=== PATIENT | female | born 1955 | race Caucasian/White ===

== ENCOUNTER → 2017-04-21 | Outpatient (CLI) | payer BC ==
--- NOTE | 2017-04-22 16:22 | Diagnostic Imaging Report ---
EXAMINATION: Bilateral screening mammogram with a Computer Aided Detection (CAD) system. INDICATION: Screening. PERSONAL HISTORY: No current complaints stated on the questionnaire. COMPARISON: 02/07/2015. FINDINGS: The breasts are composed of heterogeneously dense parenchyma which may decrease mammographic sensitivity. There is no mass, architectural distortion, or suspicious cluster of calcifications. Allowing for technique and positional differences, no suspicious change is seen. IMPRESSION: No significant change. ACR BI-RADS Category 2: Benign findings. Result letter will be mailed to the patient. Note: At least 10% of breast cancer is not imaged by mammography. Dictated on workstation # [id number]
== END ==
LOC: RAD 10:25
PROVIDERS: ATTEND Internal Medicine
DX: Z12.31 Encounter for screening mammogram for malignant neoplasm of breast (principal)
CPT/HCPCS: 77067

== ENCOUNTER 2017-05-18 05:28 | Outpatient (CLI) | payer BC ==
[~2017-05-18] VITALS: Ht 162.6 cm; Wt 61.2 kg
== END 2017-05-18 13:24 ==
LOC: PREOP 05:28
PROVIDERS: ATTEND Surgery Pediatric Surgery
DX: Z01.818 Encounter for other preprocedural examination (principal); Z12.11 Encounter for screening for malignant neoplasm of colon

== ENCOUNTER 2017-05-20 08:44 | Day surgery (SDC) | payer BC ==
[~2017-05-20] VITALS: Ht 162.6 cm; Wt 61.2 kg
[2017-05-20] MEDS ORDERED: LIDOCAINE JELLY 2% (XYLOCAINE) 5 ML TUBE MM PRN (09:00)
[2017-05-20] MEDS ORDERED: FLUMAZENIL (ROMAZICON) 0.1 MG/ML 5 ML VIAL INJ PRN (09:00)
[2017-05-20] MEDS ORDERED: NALOXONE 0.4 MG/ML 1 ML (NARCAN) VIAL IVP PRN (09:00)
[2017-05-20 09:08] VITALS: BP 117/78
[2017-05-20] MEDS ORDERED: NS IV 500 ML 500 ML IV PRN (09:10)
[2017-05-20] MEDS ORDERED: LIDOCAINE JELLY 2% (XYLOCAINE) 5 ML TUBE ONE (09:28)
[2017-05-20] MEDS ORDERED: fentaNYL INJECTION 100 MCG/2 ML AMP ONE ×2 (09:29)
[2017-05-20] MEDS ORDERED: MIDAZOLAM 2 MG/2 ML (VERSED) VIAL ONE ×4 (09:29)
[2017-05-20] MEDS: MIDAZOLAM 2 MG/2 ML (VERSED) VIAL IVP PRN ×3 (09:38→09:45)
[2017-05-20] MEDS: fentaNYL INJECTION 100 MCG/2 ML AMP IVP PRN ×4 (09:39→09:54)
--- NOTE | 2017-05-20 09:39 | Conscious Sedation/ASA ---
Conscious Sedation Pre-Proced Time Reviewed: 09:00 ASA Class: 2 Airway Mallampati Classification: (makah appropriate class) I. II. III, IV Lungs Heart ASA score ASA 1: a normal healthy patient ASA 2: a patient with a mild systemic disease (mid diabetes, controlled hypertension, obesity ASA 3: a patient with a severe systemic disease that limits activity (angina , COPD, prior Myocardial infarction) ASA 4: a patient with an incapacitating disease that is a constant threat to life (CHF, renal failure) ASA 5: a moribund patient not expected to survive 24 hrs. (ruptured aneurysm) ASA 6: a declared brain patient whose organs are being harvested. For emergent operations, add the letter E after the classification Grade 2 Sedation Plan: Analgesia, Amnesia, Plan communicated to team members, Discussed options with patient/fam, Discussed risks with patient/fam Note The patient is an appropriate candidate to undergo the planned procedure, sedation, and anesthesia. The patient immediately re-assessed prior to indication. DURAN SAUCEDA MD May 20, 2017 9:39 am
--- NOTE | 2017-05-20 09:39 | Progress Note-Pre Operative ---
Pre-Operative Progress Note H&P Reviewed The H&P was reviewed, patient examined and no changes noted. Date Seen by Provider: May 20, 2017 Time Seen by Provider: 09:00 Date H&P Reviewed: May 20, 2017 Time H&P Reviewed: 09:00 Pre-Operative Diagnosis: screening colonoscopy DURAN SAUCEDA MD May 20, 2017 9:39 am
[2017-05-20] MEDS ORDERED: morphine INJ 10 MG/ML 1ML (SYR OR VIAL) IV PRN (09:45)
[2017-05-20] MEDS ORDERED: ACETAMINOPHEN 325 MG TABLET/CAPLET (TYLENOL) PO PRN (09:45)
[2017-05-20] MEDS ORDERED: HYDROcodone/APAP 5 MG/325 MG (LORTAB) TAB PO PRN (09:45)
[2017-05-20] MEDS ORDERED: ONDANSETRON 4 MG/2 ML (SDV) Z0FRAN IV PRN (09:45)
--- NOTE | 2017-05-20 10:33 | Progress Note-Post Operative ---
Post-Operative Progess Note Surgeon (s)/Applications Instructor (s) Surgeon DURAN SAUCEDA MD Applications Instructor: none Pre-Operative Diagnosis screening colonoscopy Post-Operative Diagnosis chronic stage 2 ext and int hemorrhoids. Procedure & Operative Findings Date of Procedure 05/20/17 Procedure Performed/Findings Colonoscopy Anesthesia Type CS Estimated Blood Loss Estimated blood loss (mL): minimal Specimens/Packing Specimens Removed none DURAN SAUCEDA MD May 20, 2017 10:33 am
--- NOTE | 2017-05-20 10:34 | Discharge Inst-Surgical ---
D/C Lap Instructions-SOHAIL Follow Up 10 years Activity as tolerated High Fiber Diet 25g or more per day Avoid Alcohol, Caffeine, Spicy [place] and Acid foods. Drink 64 fluid oz or more of fluids per day. Symptoms to Report: Fever over 101 degree F, Nausea/Vomiting If any problems/questions: Contact your physician or go to Emergency Room DURAN SAUCEDA MD May 20, 2017 10:34 am
[2017-05-20 10:50] VITALS: BP 104/66
[2017-05-20 11:20] VITALS: BP 97/62
[2017-05-20 11:40] VITALS: BP 97/62
--- NOTE | 2017-05-20 18:59 | OPERATIVE REPORT ---
DATE OF SERVICE: 05/20/2017 ATTENDING PRIMARY CARE PHYSICIAN: Zelalem Morris MD PREOPERATIVE DIAGNOSIS: Screening colonoscopy. POSTOPERATIVE DIAGNOSIS: Chronic stage II external and internal hemorrhoids. The remainder of the colon and rectum were normal. PROCEDURE: Colonoscopy. SURGEON: Duran Sauceda MD ANESTHESIA: Conscious sedation. ESTIMATED BLOOD LOSS: Minimal. FINDINGS: Mild chronic stage II external and internal hemorrhoids, not actively edematous nor inflamed. The remainder of the rectum and colon were normal. There were no polyps identified. DISPOSITION: The patient tolerated the procedure well. INDICATIONS: The patient is a 61-year-old female in need of a screening colonoscopy. She has not had a colonoscopy up to this point in her life. She reports that she is doing well for the most part and does not report any major issues with diarrhea nor constipation as well as no red blood per rectum nor any dark tarry stools. DESCRIPTION OF PROCEDURE: The patient was brought to the endoscopy suite, laid in the left lateral decubitus position. After adequate IV pain and sedative medications and conscious sedation anesthesia, a digital rectal examination was performed. Chronic stage II external and internal hemorrhoids were identified, which were not actively edematous nor inflamed and no bleeding. Normal sphincter tone was felt and there were no palpable masses. The endoscope was then intubated into the anus and rectum and gently insufflated. The endoscope was then advanced to the valves of Leonard of the rectum with no polyps or any neoplasms identified. The endoscope was then advanced through the sigmoid colon where no diverticulosis was identified. The endoscope was then advanced to the remainder of the descending, transverse, ascending colon and the cecum. These segments were normal as well. There were no polyps or any neoplasms identified throughout the colon or rectum. The endoscope was then slowly withdrawn taking a second look and suctioning of residual air with no additional findings. The patient tolerated the procedure well. We will recommend a high-fiber diet with at least 25 grams of fiber per day as well as at least 64 fluid ounces of water daily to promote soft stools on a daily basis. She does not need another colonoscopy for another 10 years. Job ID: [id number] DocumentID: [id number] Dictated Date: 05/20/2017 10:22:41 Blemish Remover Date: 05/20/2017 16:11:21 Dictated By: DURAN SAUCEDA MD
--- OUTSIDE RECORDS SUMMARY | 2017-05-23 14:43 | XMS REPORT | Continuity of Care Document ---
Author Author [facility] Organization [facility] Address Unknown Phone Unavailable Allergies Active Description Code Type Severity Reaction Onset Reported/Identified Relationship to Patient Clinical Status Yes No Known Drug Allergies [id number] Drug Allergy Unknown N/ A 05/18/2017 Medications Problems Date Dx Coded Attending Type Code Diagnosis Diagnosed By 02/20/2015 Ot 218.1 02/20/2015 Ot V16.41 02/20/2015 Ot V70.0 02/20/2015 Ot V76.11 04/19/2017 Ot V76.12 OTH SCREEN MAMMO-MALIGN NEOPLASM OF [place] 04/19/2017 NICOLE CRUZ MD Ot V76.12 OTH SCREEN MAMMO-MALIGN NEOPLASM OF [place] 04/19/2017 Ot 218.1 INTRAMURAL LEIOMYOMA 04/19/2017 Ot V16.41 FAM HX-MAL NEOP-OVARY 04/19/2017 Ot V70.0 ROUTINE MEDICAL EXAM 04/19/2017 Ot V76.11 SCRN MAMMO-HIGH RISK PT, MALIGNANT NEOPL 04/26/2017 JAH PERALTA, MICHELINE Whelan Ot Z12.31 ENCNTR SCREEN MAMMOGRAM FOR MALIGNANT NE 04/26/2017 MICHELINE TYSON MD Ot Z12.31 ENCNTR SCREEN MAMMOGRAM FOR MALIGNANT NE 05/04/2017 MICHELINE TYSON MD Ot Z12.31 ENCNTR SCREEN MAMMOGRAM FOR MALIGNANT NE Procedures Results Encounters ACCT No. Visit Date/Time Discharge Status Pt. Type Provider Facility Loc./Unit Complaint [id number] 05/20/2017 08:44:00 2016 11:40:00 DIS Outpatient DURAN SAUCEDA MD [facility] ENDO SCREENING [id number] 05/18/2017 05:28:00 2016 13:24:00 DIS Outpatient DURAN SAUCEDA MD [facility] PREOP COLONOSCOPY [id number] 01/17/2014 09:47:00 2013 23:59:59 CLS Outpatient NICOLE CRUZ MD [facility] RAD SCREENING [id number] 04/29/2013 12:37:00 2012 23:59:59 CLS Outpatient [id number] 04/23/2013 11:44:00 2012 23:59:59 CLS Outpatient [id number] 04/21/2017 10:25:00 ACT Outpatient JAH PERALTA, MICHELINE Whelan [facility] RAD SCREENING [id number] 02/07/2015 11:37:00 Document Registration [id number] 01/12/2013 13:25:00 Document Registration
== END 2017-05-20 11:40 | disposition home or self-care (01) ==
LOC: ENDO 08:44
PROVIDERS: ATTEND Surgery
DX: Z12.11 Encounter for screening for malignant neoplasm of colon (principal); K64.1 Second degree hemorrhoids

== ENCOUNTER → 2018-04-27 | Outpatient (CLI) | payer BC ==
--- NOTE | 2018-04-27 12:14 | Diagnostic Imaging Report ---
INDICATION: Routine screening. COMPARISON is made with prior studies from 04/21/2017 and 02/07/2015. 2-D and 3-D bilateral screening mammography was performed with Computer Aided Detection (CAD) system. FINDINGS: Both breasts are heterogeneously dense, limiting the sensitivity of mammography. The parenchymal pattern is stable. No discrete mass or malignant appearing microcalcifications are seen. The axillae are unremarkable. IMPRESSION: BI-RADS category 1. No mammographic features suspicious for malignancy are identified. ACR BI-RADS Category 1: Negative. Result letter will be mailed to the patient. Note: At least 10% of breast cancer is not imaged by mammography. Dictated by: Dictated on workstation # [id number]
== END ==
LOC: RAD 10:16
PROVIDERS: ATTEND Internal Medicine
DX: Z12.31 Encounter for screening mammogram for malignant neoplasm of breast (principal)
CPT/HCPCS: 77067

== ENCOUNTER → 2019-05-02 | Outpatient (CLI) | payer BC ==
--- NOTE | 2019-05-03 21:34 | Diagnostic Imaging Report ---
INDICATION: Routine screening. Comparison is made with prior mammogram from 04/27/2018 and 04/21/2017. 2-D and 3-D bilateral screening mammography was performed with a Computer Aided Detection (CAD) system. 3-D tomosynthesis was also performed and reviewed. FINDINGS: Both breasts are heterogeneously dense, limiting the sensitivity of mammography. The parenchymal pattern is stable. No mass or malignant appearing microcalcifications are seen. Axillae are unremarkable. IMPRESSION: No mammographic features suspicious for malignancy are identified. ACR BI-RADS Category 1: Negative. Result letter will be mailed to the patient. Note: At least 10% of breast cancer is not imaged by mammography. Dictated by: Dictated on workstation # [id number]
== END ==
LOC: RAD 14:28
PROVIDERS: ATTEND Internal Medicine
DX: Z12.31 Encounter for screening mammogram for malignant neoplasm of breast (principal)
CPT/HCPCS: 77067

== ENCOUNTER → 2020-07-25 | Outpatient (CLI) | payer BC ==
--- NOTE | 2020-07-28 09:27 | Diagnostic Imaging Report ---
INDICATION: Screening. The current study was also evaluated with a Computer Aided Detection (CAD) system. 3-D Tomographic imaging was also performed. Comparison made with prior examination 05/02/2019, 04/27/2018 and 04/21/2017. FINDINGS: There are scattered fibroglandular densities bilaterally. A few benign type calcification. There is no dominant mass, spiculated lesion or suspicious calcification identified. Skin and nipples and axilla are unremarkable. IMPRESSION: Category 2 benign. ACR BI-RADS Category 2: Benign findings. Result letter will be mailed to the patient. Note: At least 10% of breast cancer is not imaged by mammography. Dictated by: Dictated on workstation # [id number]
== END ==
LOC: RAD 15:30
PROVIDERS: ATTEND Internal Medicine
DX: Z12.31 Encounter for screening mammogram for malignant neoplasm of breast (principal)
CPT/HCPCS: 77063; 77067

== ENCOUNTER → 2021-08-20 | Outpatient (CLI) | payer BC, MEDICARE ==
--- NOTE | 2021-08-21 14:19 | Diagnostic Imaging Report ---
Digital mammogram bilateral screening. This study was compared to the prior exams of 07/25/2020, 05/02/2019 and 04/27/2018. At this time there are no current complaints. The current study was also evaluated with a Computer Aided Detection (CAD) system. FINDINGS: The fibroglandular tissue in both breasts is heterogeneously dense. This does limit the sensitivity of this exam. Overall, there does not appear to have been any significant change when compared to the prior study. No primary or secondary sign of malignancy is noted. IMPRESSION: There is no radiographic evidence for malignancy. ACR category 1 ACR BI-RADS Category 1: Negative. Result letter will be mailed to the patient. Note: At least 10% of breast cancer is not imaged by mammography. Dictated by: Dictated on workstation # [id number]
== END ==
LOC: RAD 10:11
PROVIDERS: ATTEND Internal Medicine
DX: Z12.31 Encounter for screening mammogram for malignant neoplasm of breast (principal)
CPT/HCPCS: 77063; 77067

== ENCOUNTER → 2021-09-25 | Outpatient (CLI) | payer MEDICARE, OTHER ==
[~2021-09-25] MED LIST: CATHETER FLUSH 10 ML SYR IV PRN; HOLD METFORMIN - RECEIVED CONTRAST 20 ML VIAL IV SCH; IOHEXOL 350 MG/ML 100 ML (OMNIPAQUE 350) VIAL IV ONE; NS 100 ML (IVPB) BAG IV ONE
[2021-09-25 08:59] LABS: CREATININE SERUM 0.81 MG/DL (0.60-1.30)
--- NOTE | 2021-09-25 11:09 | Diagnostic Imaging Report ---
PROCEDURE: CT abdomen and pelvis with contrast. TECHNIQUE: Multiple contiguous axial images were obtained through the abdomen and pelvis after administration of intravenous contrast. Auto Exposure Controls were utilized during the CT exam to meet ALARA standards for radiation dose reduction. All CT scans use one or more of the following dose optimizing techniques: automated exposure control, MA and/or KvP adjustment based on patient size and exam type or iterative reconstruction. DATE: September 25, 2021. COMPARISON: None. INDICATION: 65-year-old female, left lower flank pain for 6 weeks. FINDINGS: The visualized portions of the lung bases are clear. The heart is not enlarged. There is no identified pericardial effusion. The liver is unremarkable in size and contour. There is no identified liver lesion. The main, right, and left portal veins are patent. The gallbladder is unremarkable. There is no intrahepatic or extrahepatic bile duct dilation. The main pancreatic duct is not abnormally dilated. Unremarkable appearance of the pancreatic parenchyma. The spleen is normal in size. The adrenal glands are unremarkable. Unremarkable appearance of the renal parenchyma. The urinary collecting systems are not distended. There is no identified renal or ureteral stone. Urinary bladder is unremarkable. There is a large volume colonic stool. The appendix is not well seen. There is no identified secondary findings to specifically suggest acute appendicitis. There is no free intraperitoneal air. There is no drainable fluid collection. There is no sizable volume free pelvic fluid. There are atherosclerotic calcifications. There is no identified abnormally enlarged lymph node in the abdomen or pelvis meeting CT size criteria for adenopathy. There is no identified acute bony abnormality. There is severe disc height loss at L5-S1 with endplate degenerative changes. IMPRESSION: CT ABDOMEN AND PELVIS. 1. Large volume colonic stool. 2. No identified acute abnormality in the abdomen or pelvis. Dictated by: Dictated on workstation # [id number]
== END ==
LOC: RAD 08:45
PROVIDERS: ATTEND Internal Medicine
DX: R10.32 Left lower quadrant pain (principal)
CPT/HCPCS: 36415; 74177; 82565; 84520

== ENCOUNTER → 2022-08-23 | Outpatient (CLI) | payer MEDICARE, OTHER ==
--- NOTE | 2022-08-23 10:15 | Diagnostic Imaging Report ---
INDICATION: Routine screening. COMPARISON: 08/20/2021 and 07/25/2020. TECHNIQUE: 2D and 3D bilateral screening mammography was performed with CAD. FINDINGS: Both breasts are heterogeneously dense, limiting the sensitivity of mammography. No mass or malignant-appearing microcalcifications are seen. The axillae are unremarkable. IMPRESSION: No mammographic features suspicious for malignancy are identified. ACR BI-RADS Category 1: Negative. Result letter will be mailed to the patient. Note: At least 10% of breast cancer is not imaged by mammography. Dictated by: Dictated on workstation # [id number]
== END ==
LOC: RAD 08:20
PROVIDERS: ATTEND Internal Medicine
DX: Z12.31 Encounter for screening mammogram for malignant neoplasm of breast (principal)
CPT/HCPCS: 77063; 77067

== ENCOUNTER → 2023-09-01 | Outpatient (CLI) | payer MEDICARE ==
--- NOTE | 2023-09-01 11:56 | Diagnostic Imaging Report ---
INDICATION: Routine screening. Comparison is made with prior mammogram from 08/23/2022 and 08/20/2021. 2-D and 3-D bilateral screening mammography was performed with CAD. Both breasts are heterogeneously dense, limiting the sensitivity of mammography. The right breast does show a focal density in the upper far posterior aspect which most likely represents superimposed tissue. Additional views however would be recommended. Left breast is stable. No malignant-appearing microcalcifications are seen. Axillae are unremarkable. IMPRESSION: Right breast density. Additional views recommended for further evaluation. ACR BI-RADS Category 0: Incomplete. (Needs additional imaging evaluation). Result letter will be mailed to the patient. Note: At least 10% of breast cancer is not imaged by mammography. BI-RADS 0 Dictated by: Dictated on workstation # [id number]
== END ==
LOC: RAD 06:59
PROVIDERS: ATTEND Internal Medicine
DX: Z12.31 Encounter for screening mammogram for malignant neoplasm of breast (principal); N63.10 Unspecified lump in the right breast, unspecified quadrant
CPT/HCPCS: 77063; 77067

== ENCOUNTER → 2023-09-14 | Outpatient (CLI) | payer MEDICARE, OTHER ==
--- NOTE | 2023-09-14 08:46 | Diagnostic Imaging Report ---
Indication: Right breast density. Patient presents for additional views. Correlation is made with screening study from 09/01/2023. Unilateral right 2-D and 3-D diagnostic mammography was performed. This included exaggerated CC view, spot compression MLO view as well as mediolateral views. Additional views fail to demonstrate a discrete mass. The density noted in the far posterior right breast appears to show normal dispersion consistent with superimposed fibroglandular tissue. No other abnormalities are seen. IMPRESSION: BI-RADS Category 1 Additional views fail to demonstrate a discrete mass. The patient may return to routine annual screening mammography. ACR BI-RADS Category 1: Negative. Result letter will be mailed to the patient. Note: At least 10% of breast cancer is not imaged by mammography. Dictated by: Dictated on workstation # [id number]
== END ==
LOC: RAD 07:51
PROVIDERS: ATTEND Internal Medicine
DX: R92.331 Mammographic heterogeneous density, right breast (principal)
CPT/HCPCS: 77065; G0279